=== PATIENT | female | born 1995 ===

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

== ENCOUNTER 2017-02-24 19:05 | Emergency (ER) | payer OTHER ==
[2017-02-24 19:10] VITALS: BP 131/82; PULSE 90; RESP 16; TEMP 98.9; O2SAT 100
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
--- NOTE | 2017-02-25 08:52 | CT ---
PROCEDURE: CT HEAD WITHOUT CONTRAST. HISTORY: head injury, headache COMPARISON: None available. TECHNIQUE: Axial computed tomography images were obtained through the head/brain without intravenous contrast. Radiation dose: Total exam DLP = 845.99 mGy-cm. This CT exam was performed using one or more of the following dose reduction techniques: Automated exposure control, adjustment of the mA and/or kV according to patient size, and/or use of iterative reconstruction technique. FINDINGS: HEMORRHAGE: No intracranial hemorrhage. BRAIN: Normal bobo-white matter differentiation and density are appreciated throughout the cerebrum and cerebellum with the brainstem appearing unremarkable as well. There is no mass effect. There is no suspicious extra-axial fluid collection in the midline brain anatomy appears diffusely unremarkable. VENTRICLES: Unremarkable. No hydrocephalus. CALVARIUM: No fracture or destructive bony lesion identified including the skullbase. PARANASAL SINUSES: Unremarkable as visualized. No significant inflammatory changes. MASTOID AIR CELLS: Unremarkable as visualized. No inflammatory changes. OTHER FINDINGS: None. IMPRESSION: Normal CT of the Head. Concur with V rad preliminary interpretation 02/24/2017.
== END 2017-02-24 23:20 | disposition home or self-care (01) ==
LOC: H.ER 19:05
DX: R51 Headache (principal); Y04.2XXA Assault by strike against or bumped into by another person, initial encounter